=== PATIENT | male | born 1950 | race African-American/Black ===

== ENCOUNTER 2017-07-24 04:13 | Emergency (ER) | payer SELFPAY ==
[2017-07-24 05:02] VITALS: TEMP 100.9; BMI 26.5
--- NOTE | 2017-07-24 05:49 | PDOC ---
History of Present Illness - General History Source: Patient Exam Limitations: No Limitations - History of Present Illness Initial Comments: 07/24/17 06:18 The patient is a 66 y/o male who has a history of frequent panic attacks presents to the ED for evaluation of excessive coughing, subjective fevers and intermittent diaphoresis. The patient states his symptoms started about a week ago after eating a bad batch of pepper flakes with his meal at [employer]. He reportedly went home and woke up shaking with convulsions and drenched in sweat. He states he stayed home for about 5 days while only drinking water and coffee before getting back outside. He states he then developed a violent cough which produces very little sputum at the end of the coughing. He denies hemoptysis. He states he intermittently gets very shaky since the onset of his symptoms. He states his entire body is sore from the shaking and coughing. He also reportedly quit smoking cigarettes about 2 weeks ago. The patient denies chest pain, shortness of breath, headache and dizziness. The patient denies fever, chills, nausea, vomit, diarrhea and constipation. The patient denies dysuria, frequency, urgency and hematuria. PCP: Dr. Mary Cantu Hx: former smoker <Carolina Thorne - Last Filed: 07/24/17 06:18> <Tiara Srivastava - Last Filed: 07/24/17 21:18> - General Chief Complaint: Shortness of Breath Stated Complaint: DIFFICULTY BREATHING,COUGH Time Seen by Provider: 07/24/17 05:49 Past History <Carolina Thorne - Last Filed: 07/24/17 06:18> - Past Medical History Psychiatric Problems: (anxiety) - Suicide/Smoking/Psychosocial Hx Smoking History: Current every day smoker Have you smoked in the past 12 months: Yes Number of Cigarettes Smoked Daily: 10 Information on smoking cessation initiated: No Hx Alcohol Use: No Drug/Substance Use Hx: No Substance Use Type: None <Tiara Srivastava - Last Filed: 07/24/17 21:18> - Past Medical History Allergies/Adverse Reactions: Allergies Allergy/AdvReac Type Severity Reaction Status Date / Time No Known Allergies Allergy Verified 07/24/17 05:00 Home Medications: Ambulatory Orders No Home Medications 0 mg PO DAILY 09/16/13 Albuterol Sulfate Inhaler - [Ventolin HFA Inhaler -] 1 - 2 inh PO Q4H PRN #1 inhaler 07/24/17 Azithromycin [Zithromax 250mg Tablets -] 250 mg PO UTDICT #6 tab 07/24/17 Prednisone [Deltasone -] 40 mg PO DAILY #4 tablet 07/24/17 Review of Systems - Review of Systems Able to Perform ROS?: Yes Comments:: 07/24/17 06:18 CONSTITUTIONAL: (+) chills, diaphoresis, fever, Absent: generalized weakness, malaise, loss of appetite HEENT: Absent: rhinorrhea, nasal congestion, throat pain, throat swelling, difficulty swallowing, mouth swelling, ear pain, eye pain, visual Changes CARDIOVASCULAR: Absent: chest pain, syncope, palpitations, irregular heart rate, lightheadedness , peripheral edema RESPIRATORY: (+) cough, Absent: shortness of breath, dyspnea with exertion, orthopnea, wheezing, stridor, hemoptysis GASTROINTESTINAL: Absent: abdominal pain, abdominal distension, nausea, vomiting, diarrhea, constipation, melena, hematochezia GENITOURINARY: Absent: dysuria, frequency, urgency, hesitancy, hematuria, flank pain, genital pain MUSCULOSKELETAL: (+) myalgia, Absent: arthralgia, joint swelling SKIN: Absent: rash, itching, pallor HEMATOLOGIC/IMMUNOLOGIC: Absent: easy bleeding, easy bruising, lymphadenopathy, frequent infections ENDOCRINE: Absent: unexplained weight gain, unexplained weight loss, heat intolerance, cold intolerance NEUROLOGIC: Absent: headache, focal weakness or paresthesias, dizziness, unsteady gait, seizure, mental status changes, bladder or bowel incontinence PSYCHIATRIC: Absent: anxiety, depression, suicidal or homicidal ideation, hallucinations. <Carolina Thorne - Last Filed: 07/24/17 06:18> *Physical Exam - Vital Signs Last Vital Signs Temp Pulse Resp BP Pulse Ox 100.9 F H 98 H 22 115/64 93 L 07/24/17 04:20 07/24/17 04:20 07/24/17 04:20 07/24/17 04:20 07/24/17 04:20 - Physical Exam Comments: 07/24/17 06:19 GENERAL: Well developed, well nourished. Awake and alert. No acute distress. HEENT: Normocephalic, atraumatic. PERRLA, EOMI. No conjunctival pallor. Sclera are non- icteric. Moist mucous membranes. Oropharynx is clear. NECK: Supple. Full ROM. No JVD. Carotid pulses 2+ and symmetric, without bruits. No thyromegaly. No lymphadenopathy. CARDIOVASCULAR: Regular rate and rhythm. No murmurs, rubs, or gallops. Distal pulses are 2+ and symmetric. PULMONARY: (+) wheezing at bilateral lower lung bases. No evidence of respiratory distress. No rales or rhonchi. ABDOMINAL: Soft. Non-tender. Non-distended. No rebound or guarding. No organomegaly. Normoactive bowel sounds. MUSCULOSKELETAL Normal range of motion at all joints. No bony deformities or tenderness. No CVA tenderness. EXTREMITIES: No cyanosis. No clubbing. No edema. No calf tenderness. SKIN: Warm and dry. Normal capillary refill. No rashes. No jaundice. NEUROLOGICAL: Alert, awake, appropriate. Cranial nerves 2-12 intact. Normoreflexic in the upper and lower extremities. Normal speech. Toes are down-going bilaterally. Gait is normal without ataxia. PSYCHIATRIC: Cooperative. Good eye contact. Appropriate mood and affect. <Carolina Thorne - Last Filed: 07/24/17 06:18> - Vital Signs Last Vital Signs Temp Pulse Resp BP Pulse Ox 100.9 F H 98 H 22 115/64 93 L 07/24/17 04:20 07/24/17 04:20 07/24/17 04:20 07/24/17 04:20 07/24/17 04:20 <Tiara Srivastava - Last Filed: 07/24/17 21:18> Medical Decision Making - Medical Decision Making 07/24/17 21:16 Pt was signed out to the day team, to follow up his CXR. Pt came with low grade temp and with SOB and COPD exacerbation. Wheezing at the bases of his lungs improved with 1 duoneb and dexamethasone. I will not empirically treat with abx, as this may be a viral process. <Tiara Srivastava - Last Filed: 07/24/17 21:18> *DC/Admit/Observation/Transfer - Attestations Scribe Attestion: 07/24/17 06:20 Documentation prepared by Carolina Thorne, acting as medical assistant per diem for Tiara Srivastava MD <Carolina Thorne - Last Filed: 07/24/17 06:18> <Tiara Srivastava - Last Filed: 07/24/17 21:18> Diagnosis at time of Disposition: Wheezing, Tobacco abuse, Acute bronchitis - Discharge Dispostion Disposition: HOME Condition at time of disposition: Stable - Prescriptions Prescriptions: Albuterol Sulfate Inhaler - [Ventolin HFA Inhaler -] 1 - 2 inh PO Q4H PRN #1 inhaler PRN Reason: Shortness Of Breath Azithromycin [Zithromax 250mg Tablets -] 250 mg PO UTDICT #6 tab Prednisone [Deltasone -] 40 mg PO DAILY #4 tablet - Referrals Referrals: Hector Drummond MD [Staff Physician] - Esteban Burgos MD, MD [Staff Physician] - - Patient Instructions Printed Discharge Instructions: DI for Acute Bronchitis Additional Instructions: Please take all meds as prescribed. Please return to the ED with any further complaints. Please make an appointment to see the information technology account manager. Please make an appointment to see your PMD.
[2017-07-24] MEDS ORDERED: ALBUTEROL SO4 2.5/IPRATROPIUM 0.5 INH SOL 3 ML VIAL.NEB. NEB ONE ×4 (06:11→08:24)
[2017-07-24] MEDS ORDERED: DEXAMETHASONE LIQUID 0.5 MG/5 ML 240 ML BULK BOTTLE PO ONE (06:12)
[2017-07-24] MEDS ORDERED: DEXAMETHASONE SOD PHOSPHATE 10 MG/1 ML VIAL IVPUSH ONE (06:30)
[2017-07-24] MEDS ORDERED: DEXAMETHASONE SOD PHOSPHATE 10 MG/1 ML VIAL ONE (06:32)
[2017-07-24] MEDS ORDERED: ACETAMINOPHEN 325 MG TABLET (FP) PO ONE (08:04)
--- NOTE | 2017-07-24 08:07 | PDOC ---
*Physical Exam - Vital Signs Last Vital Signs Temp Pulse Resp BP Pulse Ox 100.9 F H 98 H 22 115/64 93 L 07/24/17 04:20 07/24/17 04:20 07/24/17 04:20 07/24/17 04:20 07/24/17 04:20 - Physical Exam Comments: 07/24/17 08:05 Gen: aaox3, nad heart: +s1s2 reg Lungs: wheezing at the bases b/l, coarse bs RUL abd: soft, nt/nd +bs Ext: no c/c/e ED Treatment Course - Medications Given in the ED: ED Medications Discontinued Medications Generic Name Dose Route Start Last Admin Trade Name Freq PRN Reason Stop Dose Admin Albuterol/Ipratropium 1 amp 07/24/17 06:11 07/24/17 06:46 Duoneb - NEB 07/24/17 06:12 1 amp ONCE ONE Administration Dexamethasone Sodium Phosphate 10 mg 07/24/17 06:30 07/24/17 06:46 Decadron Injection - IVPUSH 07/24/17 06:31 10 mg ONCE ONE Administration Medical Decision Making - Medical Decision Making 07/24/17 08:07 pt signed out by the prior attending pending re-eval and cxr pt with 50pack year hx of smoking, quit 2 weeks ago now with cough x 2 weeks, fever today in the ED given 1 neb and decadron prior to my eval still with wheezing pending cxr will also add flu swab given fever and cough cough is productive of yellow sputum if flu and cxr negative will d/c to home with azithromycin and albuterol for mucopurulent bronchitis will give steroids will need pulmonary follow up 07/24/17 09:35 flu negative cxr negative *DC/Admit/Observation/Transfer Diagnosis at time of Disposition: Wheezing, Tobacco abuse, Acute bronchitis - Discharge Dispostion Disposition: HOME Condition at time of disposition: Stable Admit: No - Prescriptions Prescriptions: Albuterol Sulfate Inhaler - [Ventolin HFA Inhaler -] 1 - 2 inh PO Q4H PRN #1 inhaler PRN Reason: Shortness Of Breath Azithromycin [Zithromax 250mg Tablets -] 250 mg PO UTDICT #6 tab Prednisone [Deltasone -] 40 mg PO DAILY #4 tablet - Referrals Referrals: BurgosEsteban MD, MD [Staff Physician] - Hector Drummond MD [Staff Physician] - - Patient Instructions Printed Discharge Instructions: DI for Acute Bronchitis Additional Instructions: Please take all meds as prescribed. Please return to the ED with any further complaints. Please make an appointment to see the sba underwriter. Please make an appointment to see your PMD. - Post Discharge Activity
[2017-07-24] MEDS ORDERED: ACETAMINOPHEN 325 MG TABLET (FP) ONE (08:24)
[2017-07-24 08:30] VITALS: BP 155/77
[2017-07-24 08:34] VITALS: PULSE 89
[2017-07-24] MEDS ORDERED: AZITHROMYCIN 250 MG TABLET PO ONE (09:35)
[2017-07-24] MEDS ORDERED: AZITHROMYCIN 500 MG TABLET ONE (09:41)
== END 2017-07-24 10:32 | disposition home or self-care (01) ==
LOC: JER 04:13
PROC: 3E0F7GC Introduction of Other Therapeutic Substance into Respiratory Tract, Via Natural or Artificial Opening (ICD-10-PCS; principal; 2017-07-24)
PROC: 3E0F7GC Introduction of Other Therapeutic Substance into Respiratory Tract, Via Natural or Artificial Opening (ICD-10-PCS; 2017-07-24)
PROC: 3E0333Z Introduction of Anti-inflammatory into Peripheral Vein, Percutaneous Approach (ICD-10-PCS; 2017-07-24)
DX: J20.9 Acute bronchitis, unspecified (principal); F41.0 Panic disorder [episodic paroxysmal anxiety]; F17.210 Nicotine dependence, cigarettes, uncomplicated
CPT/HCPCS: 71046-TC-FY; 87804; 99283-25; J1100

== ENCOUNTER 2017-09-29 15:05 | Emergency (ER) | payer OTHER, MEDICARE ==
--- NOTE | 2017-09-29 15:24 | PDOC ---
Rapid Medical Evaluation Time Seen by Provider: 09/29/17 15:22 Medical Evaluation: Allergies Allergy/AdvReac Type Severity Reaction Status Date / Time No Known Allergies Allergy Verified 07/24/17 05:00 09/29/17 15:22 I have performed a brief in-person evaluation of this patient. The patient presents with a chief complaint of: "something in my ears" Pertinent physical exam findings: well appearing I have ordered the following: nothing The patient will proceed to the ED for further evaluation. Discharge Disposition - Diagnosis Ear problem - Referrals - Patient Instructions - Post Discharge Activity
[2017-09-29 15:34] VITALS: BP 148/82; PULSE 82; TEMP 98.9; BMI 25.0
--- NOTE | 2017-09-29 16:19 | PDOC ---
History of Present Illness - General Chief Complaint: Ear Problem Stated Complaint: FOREIGN OBJECT IN EAR Time Seen by Provider: 09/29/17 15:22 History Source: Patient Exam Limitations: No Limitations - History of Present Illness Initial Comments: 09/29/17 16:12 This is 67-year-old male with a history of IVDA, panic attacks who presents emergency Department with retained foreign body in his right and left ear status post nserting cotton swab. Patient states he was cleaning his ears with a cotton swab when he noticed the cotton was missing off the tip of the swab after placing in ears. Patient sent down for evaluation, he began to experience a fluttering feeling in his epigastric area consistent with his usual panic attacks. Patient states the fluttering feeling resolved spontaneously within a few seconds of onset. He denied chest pain, shortness of breath, nausea, vomiting, dizziness. Past History - Past Medical History Allergies/Adverse Reactions: Allergies Allergy/AdvReac Type Severity Reaction Status Date / Time No Known Allergies Allergy Verified 09/29/17 15:24 Home Medications: Ambulatory Orders No Home Medications 0 mg PO DAILY 09/16/13 COPD: No DVT: No Dementia: No Psychiatric Problems: (anxiety) - Immunization History Immunization Up to Date: Yes - Suicide/Smoking/Psychosocial Hx Smoking History: Former smoker Have you smoked in the past 12 months: Yes Number of Cigarettes Smoked Daily: 10 If you are a former smoker, when did you quit?: 3 months Information on smoking cessation initiated: No Hx Alcohol Use: No Drug/Substance Use Hx: No Substance Use Type: None Review of Systems - Review of Systems Able to Perform ROS?: Yes Is the patient limited Welsh proficient: No Constitutional: No: Symptoms Reported HEENTM: Yes: See HPI Respiratory: No: Symptoms reported Cardiac (ROS): Yes: See HPI ABD/GI: No: Symptoms Reported : No: Symptoms Reported Musculoskeletal: No: Symptoms Reported Integumentary: No: Symptoms Reported Neurological: No: Symptoms reported Endocrine: No: Symptoms Reported Hematologic/Lymphatic: No: Symptoms Reported *Physical Exam - Vital Signs Last Vital Signs Temp Pulse Resp BP Pulse Ox 98.9 F 82 15 148/82 100 09/29/17 15:25 09/29/17 15:25 09/29/17 15:25 09/29/17 15:25 09/29/17 15:25 - Physical Exam General Appearance: Yes: Appropriately Dressed. No: Apparent Distress HEENT: positive: Pharynx Normal, Other (impacted cerumen noted in bilateral external auditory canals) Neck: positive: Trachea midline, Supple Respiratory/Chest: positive: Lungs Clear, Normal Breath Sounds. negative: Respiratory Distress, Accessory Muscle Use Cardiovascular: positive: Regular Rhythm, Regular Rate. negative: Murmur Gastrointestinal/Abdominal: positive: Normal Bowel Sounds, Soft. negative: Tender Musculoskeletal: positive: Normal Inspection. negative: CVA Tenderness Extremity: positive: Normal Inspection Integumentary: positive: Normal Color, Dry, Warm Neurologic: positive: Alert, Normal Response, Motor Strength 5/5 Heart Score/ECG Review - History History: Slightly suspicious - Electrocardiogram EKG: Normal - Age Age: >/= 65 - Risk Factors Based on the list above the patient has:: No risk factors known - Troponin Troponin: </= normal limit - Score Heart Score - Total: 2 - ECG Intrepretation Rhythm: Regular Rhythm - Babb Babb: Normal - ECG Impressions Normal ECG: Yes ED Treatment Course - LABORATORY CBC & Chemistry Diagram: 09/29/17 16:30 09/29/17 16:15 Medical Decision Making - Medical Decision Making 09/29/17 16:17 A/P: 67-year-old male with epigastric fluttering and decreased hearing in bilateral ears Impacted cerumen noted in bilateral external auditory canals. Lungs clear to auscultation bilaterally. RRR. No murmur, rub or gallop appreciated. No pedal edema noted. No JVD noted. Abdomen soft nontender nondistended Hydrogen peroxide in bilateral external auditory canals to remove impacted cerumen CBC, CMP, cardiac profile, TSH, EKG EKG is sinus rhythm with a rate of 77 and normal intervals. 09/29/17 16:57 Laboratory testing including TSH and cardiac profile within normal. Most likely the patient's anxiety. I'll discharge the patient to follow up with his psychiatrist and his primary doctor. Ear irrigation performed. Piece of cotton noted behind impacted cerumen which was removed with alligator forceps without incident. Patient tolerated procedure well. *DC/Admit/Observation/Transfer Diagnosis at time of Disposition: Anxiety, Impacted cerumen of both ears Foreign body in ear Qualifiers: Encounter type: initial encounter Laterality: left Qualified Code(s): T16.2XXA - Foreign body in left ear, initial encounter - Discharge Dispostion Disposition: HOME Condition at time of disposition: Stable Admit: No - Referrals Referrals: Adrienne Hernandez [Primary Care Provider] - - Patient Instructions Additional Instructions: Make an appointment with your primary doctor and/or psychiatrist for continued evaluation of anxiety. Laboratory testing including thyroid function was normal. Do not insert anything smaller than your elbow into your ear. Return to emergency department for chest pain, shortness of breath, nausea, vomiting, sweating or any other concerns. - Post Discharge Activity
[2017-09-29 16:34] LABS: BASO % 0.9 % (0-2.0); EOS % 1.7 % (0-4.5); HEMATOCRIT 37.8 % (35.4-49); HEMOGLOBIN 13.4 GM/dL (11.7-16.9); MCH 33.1 pg (25.7-33.7); MCHC 35.4 g/dl (32.0-35.9); MEAN CELL VOLUME 93.5 fl (80-96); MEAN PLT VOLUME 6.9 fl (7.5-11.1); MONO % 8.9 % (3.8-10.2); NEUT % 40.5 % (42.8-82.8); PLATELET COUNT 231 K/MM3 (134-434); RBC 4.04 M/mm3 (4.00-5.60)
[2017-09-29 16:45] LABS: ALBUMIN 3.9 g/dl (3.4-5.0); ANION GAP 9 (8-16); BILIRUBIN,TOTAL 0.7 mg/dL (0.2-1.0); BLOOD UREA NITROGEN 13 mg/dL (7-18); CALCIUM 8.5 mg/dL (8.5-10.1); CHLORIDE 112 mmol/L (98-107); CO2 23 mmol/L (21-32); GLUCOSE,RANDOM 124 mg/dL (74-106); POTASSIUM 3.8 mmol/L (3.5-5.1); SGOT/AST 41 U/L (15-37); SGPT/ALT 38 U/L (12-78); SODIUM 144 mmol/L (136-145); TOT PROT 7.8 g/dl (6.4-8.2)
[2017-09-29 16:48] LABS: ALK PHOS 80 U/L (45-117)
--- NOTE | 2017-09-30 09:27 | EKG ---
Test Reason : Blood Pressure : / mmHG Vent. Rate : 077 BPM Atrial Rate : 077 BPM P-R Int : 160 ms QRS Dur : 092 ms QT Int : 344 ms P-R-T Axes : 046 056 034 degrees QTc Int : 389 ms NORMAL SINUS RHYTHM NORMAL ECG WHEN COMPARED WITH ECG OF 16-SEP-2013 00:14, QT HAS SHORTENED Confirmed by GURJIT DODD MD ([id number]) on 09/30/2017 9:27:02 AM Referred By: MR Confirmed By:GURJIT DODD MD
== END 2017-09-29 17:10 | disposition home or self-care (01) ==
LOC: JERFT 15:05
PROC: 3E1B78Z Irrigation of Ear using Irrigating Substance, Via Natural or Artificial Opening (ICD-10-PCS; principal; 2017-09-29)
PROC: 3E1B78Z Irrigation of Ear using Irrigating Substance, Via Natural or Artificial Opening (ICD-10-PCS; 2017-09-29)
PROC: 09C37ZZ Extirpation of Matter from Right External Auditory Canal, Via Natural or Artificial Opening (ICD-10-PCS; 2017-09-29)
DX: T16.1XXA Foreign body in right ear, initial encounter (principal); H61.23 Impacted cerumen, bilateral; T16.2XXA Foreign body in left ear, initial encounter; Y93.E8 Activity, other personal hygiene; Y93.89 Activity, other specified; Y92.038 Other place in apartment as the place of occurrence of the external cause
CPT/HCPCS: 36415; 80053; 82550; 84443; 84484; 85025; 93005; 93010; 99281-25

== ENCOUNTER 2021-01-26 23:58 | Emergency (ER) | payer OTHER, MEDICARE ==
[2021-01-27 01:04] VITALS: BP 163/85; PULSE 76; TEMP 98.2; BMI 24.0
== END 2021-01-27 04:34 | disposition left against medical advice (07) ==
LOC: JER 23:58
DX: M54.6 Pain in thoracic spine (principal)
CPT/HCPCS: 99283-25; 99285-25

== ENCOUNTER 2021-03-21 13:52 | Emergency (ER) | payer OTHER, MEDICARE ==
[2021-03-21 14:01] VITALS: BP 170/82; PULSE 92; TEMP 98.1; BMI 23.1
== END 2021-03-21 15:00 | disposition left against medical advice (07) ==
LOC: JERFT 13:52
DX: M71.311 Other bursal cyst, right shoulder (principal)
CPT/HCPCS: 99281-25

== ENCOUNTER 2021-04-18 13:05 | Inpatient (IN) | payer OTHER, MEDICARE ==
[2021-04-18] MEDS ORDERED: LACTATED RINGERS SOLUTION 1000 ML INFUS.BAG IV ONE (15:31)
[2021-04-18 16:42] LABS: BASO % 1.2 % (0-2.0); EOS % 0.7 % (0-4.5); HEMATOCRIT 39.5 % (35.4-49); HEMOGLOBIN 13.5 GM/dL (11.7-16.9); LYMPH % 26.1 % (8-40); MCH 29.8 pg (25.7-33.7); MCHC 34.1 g/dl (32.0-35.9); MEAN CELL VOLUME 87.4 fl (80-96); MONO % 6.4 % (3.8-10.2); NEUT % 65.6 % (42.8-82.8); PLATELET COUNT 299 10^3/uL (134-434); RBC 4.52 M/mm3 (4.00-5.60); RDW 17.7 % (11.9-15.9); WHITE BLOOD COUNT 6.2 K/mm3 (4.0-10.0)
[2021-04-18 16:46] LABS: INR 1.05 (0.83-1.09); PROTHROMBIN TIME (PATIENT) 12.3 SEC (9.7-13.0)
[2021-04-18 17:02] LABS: URINE APPEARANCE TURBID; URINE BILIRUBIN 3+ (NEGATIVE); URINE COLOR DK YELLOW; URINE GLUCOSE (UA) NEGATIVE (NEGATIVE); URINE KETONE NEGATIVE (NEGATIVE); URINE LEUK ESTERASE 1+ (NEGATIVE); URINE NITRITE POSITIVE (NEGATIVE); URINE PROTEIN 2+ (NEGATIVE); URINE UROBILINOGEN 0.2 mg/dL (0.2-1.0)
[2021-04-18 17:05] LABS: CHLORIDE 107 mmol/L (98-107); SODIUM 143 mmol/L (136-145)
[2021-04-18 17:07] LABS: CALCIUM 9.2 mg/dL (8.5-10.1)
[2021-04-18 17:08] LABS: ALBUMIN 2.8 g/dl (3.4-5.0); ANION GAP 10 MMOL/L (8-16); CO2 26 mmol/L (21-32); GLUCOSE,RANDOM 115 mg/dL (74-106); LIPASE 121 U/L (73-393)
[2021-04-18 17:10] LABS: BILIRUBIN,DIRECT 11.9 mg/dL (0.0-0.2)
[2021-04-18 17:11] LABS: CREATININE 0.9 mg/dL (0.55-1.3); SGOT/AST 76 U/L (15-37); SGPT/ALT 59 U/L (13-61)
[2021-04-18 17:12] LABS: TOT PROT 7.3 g/dl (6.4-8.2)
[2021-04-18 17:14] LABS: ALK PHOS 389 U/L (45-117)
[2021-04-18 17:31] LABS: LDH 149 U/L (87-246)
[2021-04-18 17:31] LABS: COCAINE, UR NEGATIVE (NEGATIVE); METHADONE, UR NEGATIVE (NEGATIVE); OPIATES, URI NEGATIVE (NEGATIVE); PHENCYCLIDINE,URINE NEGATIVE (NEGATIVE); URINE BARBITURATES NEGATIVE (NEGATIVE); URINE BENZODIAZEPINES NEGATIVE (NEGATIVE)
[2021-04-18 17:51] LABS: URINE AMPHETAMINES NEGATIVE (NEGATIVE)
[2021-04-18 18:14] LABS: HIV INTERPRETATION NEGATIVE (NEGATIVE)
[2021-04-18 20:14] LABS: EPI CELLS 0.6 /uL (0-25.1); HYALINE CASTS 0.12 /uL (0-3.1); URINE BACTERIA 33.3 /uL (0-1359); URINE CRYSTALS MODERATE /hpf; URINE RBC 59.2 /uL (0-23.9); URINE WBC 2.5 /uL (0-25.8)
[2021-04-18] MEDS ORDERED: IBUPROFEN 400 MG TABLET (FP) PO PRN (21:56)
[2021-04-18] MEDS ORDERED: POLYETHYLENE GLYCOL (HEALTHYLAX) 3350 17 GM PACKET PO PRN (22:19)
[2021-04-18 23:22] VITALS: BMI 22.2
[2021-04-19] MEDS ORDERED: MELATONIN 5 MG TABLETS PO ONE (01:01)
[2021-04-19] MEDS: ENOXAPARIN NA (PORCINE) 40 MG/0.4 ML DISP.SYRIN SQ SCH (09:55)
[2021-04-19] MEDS: LACTULOSE 20 GM/30 ML UDC (FOR ORAL USE ONLY) PO SCH (10:12)
[2021-04-19 10:25] LABS: BASO % 1.4 % (0-2.0); EOS % 1.6 % (0-4.5); HEMATOCRIT 39.4 % (35.4-49); HEMOGLOBIN 13.4 GM/dL (11.7-16.9); LYMPH % 34.5 % (8-40); MCH 30.2 pg (25.7-33.7); MCHC 33.9 g/dl (32.0-35.9); MEAN CELL VOLUME 89.1 fl (80-96); MEAN PLT VOLUME 9.6 fl (7.5-11.1); MONO % 9.6 % (3.8-10.2); NEUT % 52.9 % (42.8-82.8); PLATELET COUNT 275 10^3/uL (134-434); RBC 4.42 M/mm3 (4.00-5.60); RDW 18.1 % (11.9-15.9); WHITE BLOOD COUNT 5.9 K/mm3 (4.0-10.0)
[2021-04-19 10:52] LABS: CALCIUM 9.2 mg/dL (8.5-10.1)
[2021-04-19 10:53] LABS: ALBUMIN 2.7 g/dl (3.4-5.0); BLOOD UREA NITROGEN 11.7 mg/dL (7-18); MAGNESIUM 2.2 mg/dL (1.8-2.4)
[2021-04-19 10:56] LABS: CREATININE 0.9 mg/dL (0.55-1.3)
[2021-04-19 10:57] LABS: BILIRUBIN,TOTAL 14.3 mg/dL (0.2-1); TOT PROT 7.1 g/dl (6.4-8.2)
[2021-04-19] MEDS ORDERED: ALBUTEROL SO4 HFA INHALER IH PRN (15:21)
[2021-04-20] MEDS ORDERED: MELATONIN 5 MG TABLETS PO ONE (01:12)
[2021-04-20 08:34] LABS: BASO % 1.1 % (0-2.0); EOS % 1.5 % (0-4.5); HEMATOCRIT 39.2 % (35.4-49); HEMOGLOBIN 13.3 GM/dL (11.7-16.9); LYMPH % 33.2 % (8-40); MCH 30.1 pg (25.7-33.7); MCHC 33.8 g/dl (32.0-35.9); MEAN CELL VOLUME 88.9 fl (80-96); MEAN PLT VOLUME 9.3 fl (7.5-11.1); MONO % 10.5 % (3.8-10.2); NEUT % 53.7 % (42.8-82.8); PLATELET COUNT 260 10^3/uL (134-434); RBC 4.41 M/mm3 (4.00-5.60); RDW 17.9 % (11.9-15.9); WHITE BLOOD COUNT 5.7 K/mm3 (4.0-10.0)
[2021-04-20 09:05] LABS: ALBUMIN 2.4 g/dl (3.4-5.0); BLOOD UREA NITROGEN 9.4 mg/dL (7-18); CALCIUM 9.1 mg/dL (8.5-10.1)
[2021-04-20 09:08] LABS: BILIRUBIN,DIRECT 11.9 mg/dL (0.0-0.2); CREATININE 0.9 mg/dL (0.55-1.3)
[2021-04-20 09:10] LABS: BILIRUBIN,TOTAL 14.2 mg/dL (0.2-1); TOT PROT 6.6 g/dl (6.4-8.2)
[2021-04-20 09:19] LABS: MAGNESIUM 2.2 mg/dL (1.8-2.4)
[2021-04-20] MEDS ORDERED: LORazepam 2 MG/ML SDV VIAL IVPUSH SCH (09:29)
[2021-04-20] MEDS: LACTULOSE 20 GM/30 ML UDC (FOR ORAL USE ONLY) PO SCH (10:02)
[2021-04-20] MEDS: ENOXAPARIN NA (PORCINE) 40 MG/0.4 ML DISP.SYRIN SQ SCH (10:02)
[2021-04-20] MEDS ORDERED: PANTOPRAZOLE 40 MG TABLET PO ONE (13:15)
[2021-04-20] MEDS: MELATONIN 5 MG TABLETS PO SCH (23:10)
[2021-04-21 07:32] LABS: BASO % 1.4 % (0-2.0); EOS % 2.1 % (0-4.5); HEMATOCRIT 38.7 % (35.4-49); HEMOGLOBIN 13.5 GM/dL (11.7-16.9); LYMPH % 35.6 % (8-40); MCH 30.6 pg (25.7-33.7); MCHC 34.9 g/dl (32.0-35.9); MEAN CELL VOLUME 87.7 fl (80-96); MEAN PLT VOLUME 9.3 fl (7.5-11.1); MONO % 9.7 % (3.8-10.2); NEUT % 51.2 % (42.8-82.8); PLATELET COUNT 276 10^3/uL (134-434); RBC 4.41 M/mm3 (4.00-5.60); RDW 17.8 % (11.9-15.9); WHITE BLOOD COUNT 5.3 K/mm3 (4.0-10.0)
[2021-04-21 07:58] LABS: ALBUMIN 2.5 g/dl (3.4-5.0); CALCIUM 8.9 mg/dL (8.5-10.1)
[2021-04-21 07:59] LABS: BLOOD UREA NITROGEN 10.5 mg/dL (7-18)
[2021-04-21 08:03] LABS: BILIRUBIN,TOTAL 14.8 mg/dL (0.2-1); TOT PROT 6.8 g/dl (6.4-8.2)
[2021-04-21] MEDS ORDERED: POTASSIUM CHLORIDE TABS 20 MEQ TABLET.ER (FP) PO ONE (08:15)
[2021-04-21] MEDS: LACTULOSE 20 GM/30 ML UDC (FOR ORAL USE ONLY) PO SCH (09:33)
[2021-04-21] MEDS: ENOXAPARIN NA (PORCINE) 40 MG/0.4 ML DISP.SYRIN SQ SCH (09:34)
[2021-04-21] MEDS ORDERED: FAMOTIDINE 20 MG TABLET PO ONE (19:49)
[2021-04-21] MEDS: MELATONIN 5 MG TABLETS PO SCH (22:51)
[2021-04-22 01:06] LABS: FIBROSIS SCORE. 0.99 (0.00-0.21); HCV ALPHA 2 MACRO CHART 278 mg/dL (110-276); NECRO.INFLAM ACT.SCORE 0.57 (0.00-0.17); NECROINFLAM. ACTIVITY GRADE A2-Moderate activity (.)
[2021-04-22 04:44] VITALS: BP 143/73; PULSE 74; TEMP 98.3
[2021-04-22 07:07] LABS: CARCINOEMBRYONIC ANTIGEN 3.8 ng/mL (0.0-4.7)
[2021-04-23 17:06] LABS: HCV RNA GENOTYPE 1a (.)
== END 2021-04-22 05:11 | disposition short-term general hospital (02) | DRG 436 ==
LOC: JER 13:05 → JERBED 19:29 → J7W 22:56
DX: C78.7 Secondary malignant neoplasm of liver and intrahepatic bile duct (principal); R17 Unspecified jaundice; B19.20 Unspecified viral hepatitis C without hepatic coma; R74.8 Abnormal levels of other serum enzymes; N40.0 Benign prostatic hyperplasia without lower urinary tract symptoms; J44.9 Chronic obstructive pulmonary disease, unspecified
CPT/HCPCS: 36415; 71045-TC-FY; 71046-TC-FY; 71250-TC; 74177-TC; 80053; 80076; 80307; 81003; 82105; 82140; 82172; 82248; 82378; 82977; 83010; 83615; 83690; 83735; 83883; 84460; 85025; 85045; 85610; 85730; 86301; 86704; 86705; 86708; 86769; 86803; 87340; 87389; 87517; 87522; 87902; 93005; 93010; 99285-25; C9803; Q9967; U0003; U0005

== ENCOUNTER 2022-02-07 20:32 | Inpatient (IN) | payer OTHER, MEDICARE ==
[2022-02-07] MEDS ORDERED: methylPREDNISolone NA SUCC 125 MG/2 ML VIAL IVPUSH ONE (21:09)
[2022-02-07] MEDS ORDERED: methylPREDNISolone NA SUCC 125 MG/2 ML VIAL ONE (21:14)
[2022-02-07] MEDS ORDERED: ALBUTEROL SO4 2.5/IPRATROPIUM 0.5 INH SOL 3 ML VIAL.NEB. NEB ONE ×2 (21:14→23:11)
[2022-02-07] MEDS: ALBUTEROL SO4 2.5/IPRATROPIUM 0.5 INH SOL 3 ML VIAL.NEB. NEB SCH (21:22)
[2022-02-07 21:46] LABS: VENOUS BASE EXCESS 1.2 mmol/L (-2-2); VENOUS O2 SATURATION 84.1 % (70-80); VENOUS PCO2 51.4 mmHg (38-52); VENOUS PH 7.348 (7.310-7.410)
[2022-02-07 22:09] LABS: BASO % 0.4 % (0-2.0); EOS % 0.8 % (0-4.5); HEMATOCRIT 37.4 % (35.4-49); HEMOGLOBIN 12.5 GM/dL (11.7-16.9); LYMPH % 33.5 % (8-40); MCH 30.5 pg (25.7-33.7); MCHC 33.3 g/dl (32.0-35.9); MEAN CELL VOLUME 91.3 fl (80-96); MEAN PLT VOLUME 8.1 fl (7.5-11.1); MONO % 8.3 % (3.8-10.2); PLATELET COUNT 224 10^3/uL (134-434); WHITE BLOOD COUNT 6.1 K/mm3 (4.0-10.0)
[2022-02-07 22:21] LABS: CHLORIDE 104 mmol/L (98-107); SODIUM 140 mmol/L (136-145)
[2022-02-07 22:23] LABS: ALBUMIN 3.6 g/dl (3.4-5.0); ANION GAP 8 MMOL/L (8-16); BLOOD UREA NITROGEN 10.9 mg/dL (7-18); CALCIUM 8.9 mg/dL (8.5-10.1); CO2 28 mmol/L (21-32); GLUCOSE,RANDOM 107 mg/dL (74-106)
[2022-02-07 22:24] LABS: MAGNESIUM 1.9 mg/dL (1.8-2.4)
[2022-02-07 22:26] LABS: CREATININE 0.8 mg/dL (0.55-1.3); SGOT/AST 47 U/L (15-37); SGPT/ALT 37 U/L (13-61)
[2022-02-07 22:28] LABS: BILIRUBIN,TOTAL 0.5 mg/dL (0.2-1); TOT PROT 7.7 g/dl (6.4-8.2)
[2022-02-07 22:29] LABS: ALK PHOS 109 U/L (45-117)
[2022-02-07] MEDS ORDERED: CEFTRIAXONE 1,000 MG in DEXTROSE 5%-WATER - 50 ML IVPB ONE (22:44)
[2022-02-07] MEDS ORDERED: ASPIRIN 81 MG CHEWABLE TABLETS PO ONE (23:06)
[2022-02-07] MEDS ORDERED: CEFTRIAXONE 1 GM/50 ML BAG ONE (23:11)
[2022-02-07] MEDS ORDERED: ADENOSINE 6 MG/2 ML VIAL IVPUSH ONE (23:37)
[2022-02-07] MEDS ORDERED: dilTIAZem HCL 125 MG/25 ML - 25 ML VIAL ONE (23:52)
[2022-02-08] MEDS ORDERED: ADENOSINE 6 MG/2 ML VIAL IVPUSH ONE ×2 (00:02→00:03)
[2022-02-08] MEDS ORDERED: dilTIAZem HCL 50 MG/10 ML - 10 ML VIAL IVPUSH ONE ×2 (00:02→00:18)
[2022-02-08] MEDS ORDERED: dilTIAZem HCL 30 MG TABLET PO ONE (00:12)
[2022-02-08] MEDS ORDERED: dilTIAZem HCL 30 MG TABLET ONE ×2 (00:14→00:28)
[2022-02-08] MEDS ORDERED: dilTIAZem HCL 125 MG/25 ML - 25 ML VIAL ONE (00:23)
[2022-02-08] MEDS ORDERED: dilTIAZem HCL 50 MG/10 ML - 10 ML VIAL ONE (00:23)
[2022-02-08] MEDS ORDERED: APIXABAN 5 MG TABLET PO ONE (00:51)
[2022-02-08] MEDS: ALBUTEROL SO4 2.5/IPRATROPIUM 0.5 INH SOL 3 ML VIAL.NEB. NEB SCH ×3 (00:53→02:47)
[2022-02-08] MEDS ORDERED: APIXABAN 5 MG TABLET ONE (00:58)
[2022-02-08] MEDS ORDERED: ASPIRIN 81 MG CHEWABLE TABLETS ONE (00:59)
[2022-02-08 05:48] LABS: CHOLESTEROL 182 mg/dL (50-200); TRIGLYCERIDES 100 mg/dL (0-150)
[2022-02-08 05:49] LABS: LDL CHOLESTEROL (ONLY SJRH) 108 mg/dL (5-100)
[2022-02-08 05:51] LABS: HDL CHOLESTEROL 64 mg/dL (40-60)
[2022-02-08 05:52] LABS: N-TERMINAL BNP 1796.2 pg/ml (5-125)
[2022-02-08 08:01] LABS: BASO % 0.1 % (0-2.0); HEMATOCRIT 36.9 % (35.4-49); HEMOGLOBIN 12.2 GM/dL (11.7-16.9); LYMPH % 8.4 % (8-40); MCH 30.6 pg (25.7-33.7); MCHC 33.1 g/dl (32.0-35.9); MEAN CELL VOLUME 92.4 fl (80-96); MEAN PLT VOLUME 8.2 fl (7.5-11.1); MONO % 2.3 % (3.8-10.2); NEUT % 89.2 % (42.8-82.8); PLATELET COUNT 226 10^3/uL (134-434); RDW 16.6 % (11.9-15.9); WHITE BLOOD COUNT 3.6 K/mm3 (4.0-10.0)
[2022-02-08 08:05] LABS: CALCIUM 8.6 mg/dL (8.5-10.1)
[2022-02-08 08:06] LABS: ALBUMIN 3.1 g/dl (3.4-5.0); BLOOD UREA NITROGEN 12.9 mg/dL (7-18); MAGNESIUM 1.9 mg/dL (1.8-2.4)
[2022-02-08 08:09] LABS: CREATININE 0.9 mg/dL (0.55-1.3); PHOSPHOROUS 2.5 mg/dL (2.5-4.9)
[2022-02-08 08:10] LABS: BILIRUBIN,TOTAL 0.6 mg/dL (0.2-1)
[2022-02-08 08:13] LABS: BILIRUBIN,DIRECT 0.1 mg/dL (0.0-0.2)
[2022-02-08] MEDS: IPRATROPIUM BR 0.02% 0.5 MG/2.5 ML VIAL.NEB. NEB SCH ×3 (08:35→15:22)
[2022-02-08] MEDS ORDERED: REMDESIVIR 200 MG in SODIUM CHLORIDE 250 ML IVPB ONE (09:00)
[2022-02-08] MEDS ORDERED: DEXAMETHASONE SOD PHOSPHATE 10 MG/1 ML VIAL IVPUSH ONE (09:00)
[2022-02-08] MEDS ORDERED: PNEUMOC 20-VAL CONJ-DIP CRM/PF 0.5 ML SYRINGE IM ONE (10:00)
[2022-02-08] MEDS ORDERED: METOPROLOL TARTRATE 25 MG TABLET (FP) PO SCH (10:00)
[2022-02-08] MEDS ORDERED: APIXABAN 5 MG TABLET PO SCH (10:15)
[2022-02-08] MEDS: dilTIAZem HCL 30 MG TABLET PO SCH ×3 (11:36→18:05)
[2022-02-08] MEDS ORDERED: SIMETHICONE 80 MG TAB.CHEW (FP) PO PRN (13:01)
[2022-02-08] MEDS ORDERED: IPRATROPIUM BR 0.02% 0.5 MG/2.5 ML VIAL.NEB. NEB SCH (20:00)
[2022-02-08] MEDS: APIXABAN 5 MG TABLET PO SCH (21:42)
[2022-02-08] MEDS ORDERED: ALBUTEROL SO4 HFA INHALER IH ONE (21:58)
[2022-02-08] MEDS ORDERED: guaiFENesin 200 MG/10 ML 10 ML UNIT-DOSE CUPS PO ONE (21:59)
[2022-02-08] MEDS ORDERED: CHLORHEXIDINE GLUCONATE 4% CLEANSER FOR DECOLONIZATION TP SCH (22:00)
[2022-02-08] MEDS ORDERED: MUPIROCIN 2% TOPICAL OINTMENT FOR DECOLONIZATION NS SCH (22:00)
[2022-02-08] MEDS: BENZOCAINE/MENTH/CETYLPYRD CL 1 EACH LOZENGE MM PRN (22:44)
[2022-02-08] MEDS ORDERED: MELATONIN 5 MG TABLETS PO ONE (22:57)
[2022-02-09] MEDS: dilTIAZem HCL 30 MG TABLET PO SCH ×4 (00:14→18:10)
[2022-02-09] MEDS: BENZOCAINE/MENTH/CETYLPYRD CL 1 EACH LOZENGE MM PRN ×3 (06:25→22:00)
[2022-02-09 07:49] LABS: BASO % 0.2 % (0-2.0); HEMATOCRIT 34.6 % (35.4-49); HEMOGLOBIN 11.4 GM/dL (11.7-16.9); LYMPH % 6.4 % (8-40); MCH 30.8 pg (25.7-33.7); MCHC 32.8 g/dl (32.0-35.9); MEAN CELL VOLUME 93.7 fl (80-96); MEAN PLT VOLUME 7.9 fl (7.5-11.1); MONO % 6.9 % (3.8-10.2); NEUT % 86.5 % (42.8-82.8); PLATELET COUNT 235 10^3/uL (134-434); RBC 3.69 M/mm3 (4.00-5.60); RDW 16.7 % (11.9-15.9); WHITE BLOOD COUNT 6.7 K/mm3 (4.0-10.0)
[2022-02-09 08:32] LABS: BILIRUBIN,TOTAL 0.3 mg/dL (0.2-1); BLOOD UREA NITROGEN 29.6 mg/dL (7-18); CALCIUM 8.9 mg/dL (8.5-10.1); CREATININE 0.9 mg/dL (0.55-1.3); MAGNESIUM 2.1 mg/dL (1.8-2.4); PHOSPHOROUS 3.8 mg/dL (2.5-4.9); TOT PROT 6.8 g/dl (6.4-8.2)
[2022-02-09] MEDS ORDERED: IPRATROPIUM BR 0.02% 0.5 MG/2.5 ML VIAL.NEB. NEB SCH (10:00)
[2022-02-09] MEDS: DEXAMETHASONE SOD PHOSPHATE 10 MG/1 ML VIAL IVPUSH SCH (10:54)
[2022-02-09] MEDS: APIXABAN 5 MG TABLET PO SCH ×2 (10:54→21:00)
[2022-02-09] MEDS: REMDESIVIR 100 MG in SODIUM CHLORIDE 250 ML IVPB SCH (10:54)
[2022-02-09] MEDS ORDERED: ACETAMINOPHEN 325 MG TABLET (FP) PO PRN (15:36)
[2022-02-09 15:51] VITALS: BMI 19.0
[2022-02-09] MEDS ORDERED: MELATONIN 5 MG TABLETS PO ONE (20:04)
[2022-02-09] MEDS: guaiFENesin/CODEINE 5 ML UNIT-DOSE CUPS PO PRN (20:49)
[2022-02-09] MEDS: MELATONIN 1 MG TABLET PO SCH (21:00)
[2022-02-09] MEDS: ALBUTEROL SO4 HFA INHALER IH PRN (21:00)
[2022-02-10] MEDS: dilTIAZem HCL 30 MG TABLET PO SCH ×4 (00:26→17:29)
[2022-02-10] MEDS: guaiFENesin/CODEINE 5 ML UNIT-DOSE CUPS PO PRN (06:06)
[2022-02-10] MEDS: BENZOCAINE/MENTH/CETYLPYRD CL 1 EACH LOZENGE MM PRN (06:07)
[2022-02-10 08:31] LABS: BASO % 0.3 % (0-2.0); HEMATOCRIT 34.4 % (35.4-49); HEMOGLOBIN 11.3 GM/dL (11.7-16.9); LYMPH % 5.3 % (8-40); MCH 30.6 pg (25.7-33.7); MCHC 32.8 g/dl (32.0-35.9); MEAN CELL VOLUME 93.4 fl (80-96); MEAN PLT VOLUME 8.2 fl (7.5-11.1); MONO % 4.4 % (3.8-10.2); PLATELET COUNT 246 10^3/uL (134-434); RBC 3.69 M/mm3 (4.00-5.60); WHITE BLOOD COUNT 7.1 K/mm3 (4.0-10.0)
[2022-02-10 08:55] LABS: CALCIUM 8.8 mg/dL (8.5-10.1)
[2022-02-10 08:56] LABS: BLOOD UREA NITROGEN 27.7 mg/dL (7-18); MAGNESIUM 2.1 mg/dL (1.8-2.4)
[2022-02-10 08:57] LABS: ALBUMIN 3.2 g/dl (3.4-5.0)
[2022-02-10 08:59] LABS: CREATININE 0.8 mg/dL (0.55-1.3)
[2022-02-10 09:01] LABS: BILIRUBIN,TOTAL 0.4 mg/dL (0.2-1); TOT PROT 6.7 g/dl (6.4-8.2)
[2022-02-10] MEDS: DEXAMETHASONE SOD PHOSPHATE 10 MG/1 ML VIAL IVPUSH SCH (10:47)
[2022-02-10] MEDS: REMDESIVIR 100 MG in SODIUM CHLORIDE 250 ML IVPB SCH (10:53)
[2022-02-10] MEDS: APIXABAN 5 MG TABLET PO SCH ×2 (10:53→21:27)
[2022-02-10] MEDS ORDERED: oxyCODONE HCL 5 MG TABLET PO ONE (21:12)
[2022-02-10] MEDS: MELATONIN 1 MG TABLET PO SCH (21:27)
[2022-02-11] MEDS: dilTIAZem HCL 30 MG TABLET PO SCH ×3 (01:03→12:55)
[2022-02-11] MEDS: APIXABAN 5 MG TABLET PO SCH ×2 (10:04→21:46)
[2022-02-11] MEDS: REMDESIVIR 100 MG in SODIUM CHLORIDE 250 ML IVPB SCH (10:04)
[2022-02-11] MEDS: DEXAMETHASONE SOD PHOSPHATE 10 MG/1 ML VIAL IVPUSH SCH (10:04)
[2022-02-11] MEDS: oxyCODONE HCL 5 MG TABLET PO PRN (17:30)
[2022-02-11] MEDS: guaiFENesin/CODEINE 5 ML UNIT-DOSE CUPS PO PRN (21:45)
[2022-02-11] MEDS: MELATONIN 1 MG TABLET PO SCH (21:45)
[2022-02-12 06:52] LABS: BASO % 1.1 % (0-2.0); HEMATOCRIT 36.5 % (35.4-49); HEMOGLOBIN 12.1 GM/dL (11.7-16.9); LYMPH % 8.5 % (8-40); MCH 30.6 pg (25.7-33.7); MCHC 33.3 g/dl (32.0-35.9); MEAN PLT VOLUME 7.9 fl (7.5-11.1); MONO % 10.2 % (3.8-10.2); NEUT % 80.2 % (42.8-82.8); PLATELET COUNT 262 10^3/uL (134-434); RBC 3.96 M/mm3 (4.00-5.60); RDW 16.7 % (11.9-15.9); WHITE BLOOD COUNT 5.7 K/mm3 (4.0-10.0)
[2022-02-12 07:05] LABS: ALBUMIN 2.9 g/dl (3.4-5.0); CALCIUM 8.4 mg/dL (8.5-10.1); MAGNESIUM 1.9 mg/dL (1.8-2.4)
[2022-02-12 07:08] LABS: CREATININE 0.7 mg/dL (0.55-1.3)
[2022-02-12 07:10] LABS: BILIRUBIN,TOTAL 0.3 mg/dL (0.2-1); TOT PROT 6.3 g/dl (6.4-8.2)
[2022-02-12] MEDS: DEXAMETHASONE SOD PHOSPHATE 10 MG/1 ML VIAL IVPUSH SCH (09:54)
[2022-02-12] MEDS: APIXABAN 5 MG TABLET PO SCH ×2 (09:55→22:10)
[2022-02-12] MEDS: REMDESIVIR 100 MG in SODIUM CHLORIDE 250 ML IVPB SCH (09:56)
[2022-02-12] MEDS: oxyCODONE HCL 5 MG TABLET PO PRN (16:05)
[2022-02-12] MEDS: guaiFENesin/CODEINE 5 ML UNIT-DOSE CUPS PO PRN ×2 (16:15→22:10)
[2022-02-12] MEDS: ALBUTEROL SO4 HFA INHALER IH PRN (16:17)
[2022-02-12] MEDS: MELATONIN 1 MG TABLET PO SCH (22:10)
[2022-02-13 06:00] VITALS: RESP 18
[2022-02-13 09:37] LABS: HEMOGLOBIN 12.4 GM/dL (11.7-16.9); MCH 30.7 pg (25.7-33.7); MCHC 33.4 g/dl (32.0-35.9); MEAN CELL VOLUME 91.9 fl (80-96); MEAN PLT VOLUME 8.2 fl (7.5-11.1); PLATELET COUNT 327 10^3/uL (134-434); RBC 4.03 M/mm3 (4.00-5.60); RDW 17.5 % (11.9-15.9); WHITE BLOOD COUNT 6.8 K/mm3 (4.0-10.0)
[2022-02-13] MEDS: APIXABAN 5 MG TABLET PO SCH (09:48)
[2022-02-13 09:54] LABS: SODIUM 141 mmol/L (136-145)
[2022-02-13 09:55] LABS: CHLORIDE 102 mmol/L (98-107)
[2022-02-13 10:00] LABS: ALBUMIN 2.9 g/dl (3.4-5.0); ANION GAP 6 MMOL/L (8-16); BLOOD UREA NITROGEN 24.6 mg/dL (7-18); CO2 32 mmol/L (21-32); GLUCOSE,RANDOM 185 mg/dL (74-106)
[2022-02-13] MEDS ORDERED: DEXAMETHASONE 4 MG TABLET (FP) PO SCH (10:00)
[2022-02-13 10:03] LABS: CREATININE 0.7 mg/dL (0.55-1.3); SGOT/AST 19 U/L (15-37); SGPT/ALT 28 U/L (13-61)
[2022-02-13 10:05] LABS: BILIRUBIN,TOTAL 0.6 mg/dL (0.2-1); TOT PROT 6.2 g/dl (6.4-8.2)
[2022-02-13 10:06] LABS: ALK PHOS 72 U/L (45-117)
[2022-02-13 10:56] LABS: ANISOCYTOSIS 2+; MACROCYTOSIS 1+; OVALOCYTE 2+; TOXIC GRANULATION 2+
[2022-02-13 14:41] VITALS: BP 142/77; PULSE 77; TEMP 98.2
== END 2022-02-13 17:30 | disposition home or self-care (01) | DRG 178 ==
LOC: JER 20:32 → JERBED 22:53 → JICU 02-08 02:02 → J4S 02-08 18:01
PROVIDERS: ADMIT Hospitalist; ATTEND Nurse Practitioner Acute Care
PROC: XW033E5 Introduction of Remdesivir Anti-infective into Peripheral Vein, Percutaneous Approach, New Technology Group 5 (ICD-10-PCS; principal; 2022-02-07)
DX: U07.1 COVID-19 (principal); C22.1 Intrahepatic bile duct carcinoma; I24.8 Other forms of acute ischemic heart disease; J44.1 Chronic obstructive pulmonary disease with (acute) exacerbation; R64 Cachexia; Z68.1 Body mass index [BMI] 19.9 or less, adult; I48.91 Unspecified atrial fibrillation; F17.210 Nicotine dependence, cigarettes, uncomplicated; R00.0 Tachycardia, unspecified
CPT/HCPCS: 0241U-QW; 36415; 71045-TC-FY; 80048; 80053; 80061; 80076; 82803; 83735; 83880; 84100; 84443; 84484; 85025; 85379; 86140; 87040; 87086; 93005; 93010; 93306-TC; 93970-TC; 94640; 94761; 99285-25; C9399; C9803-CS; J1100; U0003; U0005

== ENCOUNTER 2022-02-22 19:01 | Emergency (ER) | payer OTHER, MEDICARE ==
[2022-02-22 19:22] VITALS: BP 115/71; PULSE 72; RESP 18; TEMP 98.4; BMI 18.6
[2022-02-22 20:33] LABS: EPI CELLS 8 /uL (0-25.1); HYALINE CASTS 1 /uL (0-3.1); URINE APPEARANCE TURBID; URINE BACTERIA 295 /uL (0-1359); URINE BILIRUBIN NEGATIVE (NEGATIVE); URINE COLOR DK YELLOW; URINE GLUCOSE (UA) NEGATIVE (NEGATIVE); URINE KETONE TRACE (NEGATIVE); URINE LEUK ESTERASE 3+ (NEGATIVE); URINE NITRITE NEGATIVE (NEGATIVE); URINE PROTEIN 1+ (NEGATIVE); URINE RBC 44 /uL (0-23.9); URINE UROBILINOGEN 0.2 mg/dL (0.2-1.0); URINE WBC 642 /uL (0-25.8)
[2022-02-22] MEDS ORDERED: PHENAZOPYRIDINE HCL 100 MG TABLET (FP) PO ONE (20:39)
[2022-02-22] MEDS ORDERED: CEPHALEXIN MONOHYDRATE 500 MG CAPSULE (UD) PO ONE (20:39)
[2022-02-22] MEDS ORDERED: CEPHALEXIN MONOHYDRATE 500 MG CAPSULE (UD) ONE (20:41)
[2022-02-22] MEDS ORDERED: PHENAZOPYRIDINE HCL 100 MG TABLET (FP) ONE (20:42)
== END 2022-02-22 21:05 | disposition home or self-care (01) ==
LOC: JERFT 19:01
DX: N39.0 Urinary tract infection, site not specified (principal)
CPT/HCPCS: 81003; 87086; 99283-25

== ENCOUNTER 2023-03-17 14:05 | Inpatient (IN) | payer OTHER, MEDICARE ==
[2023-03-17] MEDS: ALBUTEROL SO4 2.5/IPRATROPIUM 0.5 INH SOL 3 ML VIAL.NEB. NEB SCH ×4 (15:15→16:08)
[2023-03-17] MEDS ORDERED: AZITHROMYCIN 500 MG TABLET PO ONE (15:31)
[2023-03-17] MEDS ORDERED: AZITHROMYCIN 500 MG TABLET ONE (15:52)
[2023-03-17] MEDS ORDERED: ALBUTEROL SO4 2.5/IPRATROPIUM 0.5 INH SOL 3 ML VIAL.NEB. NEB ONE (15:52)
[2023-03-17 16:13] LABS: BASO % 0.3 % (0-2.0); EOS % 0.6 % (0-4.5); HEMATOCRIT 42.2 % (35.4-49); HEMOGLOBIN 14.2 GM/dL (11.7-16.9); LYMPH % 6.6 % (8-40); MCH 33.3 pg (25.7-33.7); MCHC 33.7 g/dl (32.0-35.9); MEAN CELL VOLUME 98.7 fl (80-96); MEAN PLT VOLUME 9.3 fl (7.5-11.1); MONO % 4.5 % (3.8-10.2); PLATELET COUNT 200 10^3/uL (134-434); RBC 4.28 M/mm3 (4.00-5.60); RDW 15.8 % (11.9-15.9); WHITE BLOOD COUNT 7.2 K/mm3 (4.0-10.0)
[2023-03-17 16:23] LABS: POTASSIUM 4.2 mmol/L (3.5-5.1)
[2023-03-17 16:25] LABS: CALCIUM 8.1 mg/dL (8.5-10.1)
[2023-03-17 16:26] LABS: ALBUMIN 3.1 g/dl (3.4-5.0); BLOOD UREA NITROGEN 18.4 mg/dL (7-18)
[2023-03-17 16:29] LABS: CREATININE 0.9 mg/dL (0.55-1.3)
[2023-03-17 16:31] LABS: TOT PROT 6.4 g/dl (6.4-8.2)
[2023-03-17 16:34] LABS: N-TERMINAL BNP 16851.9 pg/ml (5-125)
[2023-03-17 16:35] LABS: BILIRUBIN,TOTAL 0.8 mg/dL (0.2-1)
[2023-03-17] MEDS ORDERED: ASPIRIN 81 MG CHEWABLE TABLETS PO ONE (17:05)
[2023-03-17] MEDS ORDERED: ASPIRIN 81 MG CHEWABLE TABLETS ONE (17:16)
[2023-03-17] MEDS ORDERED: ALBUTEROL SO4 HFA INHALER IH PRN (18:43)
[2023-03-17] MEDS ORDERED: ALBUTEROL SO4 2.5/IPRATROPIUM 0.5 INH SOL 3 ML VIAL.NEB. NEB SCH (20:00)
[2023-03-17] MEDS ORDERED: LEVALBUTEROL HCL 0.31 MG/3 ML VIAL.NEB IH ONE (20:27)
[2023-03-17] MEDS: LEVALBUTEROL HCL 0.31 MG/3 ML VIAL.NEB IH SCH (21:16)
[2023-03-17] MEDS ORDERED: HEPARIN NA (PORCINE) 5,000 UNITS/ML 1ML VIAL SQ SCH (22:00)
[2023-03-17] MEDS ORDERED: APIXABAN 5 MG TABLET ONE (22:24)
[2023-03-17] MEDS ORDERED: METOPROLOL TARTRATE 25 MG TABLET (FP) ONE (22:25)
[2023-03-17] MEDS: METOPROLOL TARTRATE 25 MG TABLET (FP) PO SCH (22:34)
[2023-03-17] MEDS: APIXABAN 5 MG TABLET PO SCH (22:34)
[2023-03-17] MEDS: BUDESONIDE/FORMETEROL FUMARATE 80/4.5 mcg INHALER IH SCH (22:44)
[2023-03-18 06:23] LABS: BASO % 0.2 % (0-2.0); HEMATOCRIT 42.6 % (35.4-49); HEMOGLOBIN 13.8 GM/dL (11.7-16.9); LYMPH % 8.1 % (8-40); MCH 32.7 pg (25.7-33.7); MCHC 32.5 g/dl (32.0-35.9); MEAN CELL VOLUME 100.7 fl (80-96); MEAN PLT VOLUME 9.4 fl (7.5-11.1); NEUT % 87.7 % (42.8-82.8); PLATELET COUNT 187 10^3/uL (134-434); RBC 4.23 M/mm3 (4.00-5.60); RDW 15.4 % (11.9-15.9); WHITE BLOOD COUNT 6.5 K/mm3 (4.0-10.0)
[2023-03-18 07:09] LABS: POTASSIUM 5.1 mmol/L (3.5-5.1)
[2023-03-18 07:11] LABS: CALCIUM 8.3 mg/dL (8.5-10.1)
[2023-03-18 07:12] LABS: ALBUMIN 3.1 g/dl (3.4-5.0); BLOOD UREA NITROGEN 28.1 mg/dL (7-18); MAGNESIUM 2.1 mg/dL (1.8-2.4)
[2023-03-18 07:15] LABS: CREATININE 1.1 mg/dL (0.55-1.3); PHOSPHOROUS 3.5 mg/dL (2.5-4.9)
[2023-03-18 07:16] LABS: BILIRUBIN,TOTAL 0.9 mg/dL (0.2-1); TOT PROT 6.7 g/dl (6.4-8.2)
[2023-03-18] MEDS: LEVALBUTEROL HCL 0.31 MG/3 ML VIAL.NEB IH SCH ×3 (08:40→20:44)
[2023-03-18] MEDS ORDERED: LEVALBUTEROL HCL 0.31 MG/3 ML VIAL.NEB IH ONE (08:40)
[2023-03-18] MEDS ORDERED: FUROSEMIDE 40 MG/4 ML INJECTABLE VIAL ONE (09:35)
[2023-03-18] MEDS: BUDESONIDE/FORMETEROL FUMARATE 80/4.5 mcg INHALER IH SCH (09:48)
[2023-03-18] MEDS: APIXABAN 5 MG TABLET PO SCH ×2 (09:48→21:28)
[2023-03-18] MEDS: FUROSEMIDE 40 MG/4 ML INJECTABLE VIAL IVPUSH SCH (09:48)
[2023-03-18] MEDS: SACUBITRIL/VALSARTAN 24 MG-26 MG TABLET PO SCH ×2 (09:48→21:28)
[2023-03-18] MEDS: METOPROLOL TARTRATE 25 MG TABLET (FP) PO SCH (09:48)
[2023-03-18] MEDS ORDERED: METOPROLOL TARTRATE 5 MG/5 ML VIAL ONE ×2 (09:54→10:15)
[2023-03-18] MEDS ORDERED: methylPREDNISolone NA SUCC 40 MG/1 ML VIAL IVPUSH SCH (10:00)
[2023-03-18] MEDS ORDERED: dilTIAZem HCL 125 MG/25 ML - 25 ML VIAL ONE (10:04)
[2023-03-18] MEDS ORDERED: IPRATROPIUM BR 0.02% 0.5 MG/2.5 ML VIAL.NEB. NEB ONE (10:09)
[2023-03-18] MEDS: METOPROLOL TARTRATE 5 MG/5 ML VIAL IVPUSH ONE ×2 (10:15→14:03)
[2023-03-18] MEDS: IPRATROPIUM BR 0.02% 0.5 MG/2.5 ML VIAL.NEB. NEB PRN ×2 (10:23→10:37)
[2023-03-18] MEDS ORDERED: dilTIAZem HCL 30 MG TABLET PO ONE (10:28)
[2023-03-18] MEDS ORDERED: METOPROLOL TARTRATE 5 MG/5 ML VIAL IVPUSH ONE (10:30)
[2023-03-18] MEDS ORDERED: dilTIAZem HCL 30 MG TABLET ONE (10:36)
[2023-03-18] MEDS ORDERED: dilTIAZem HCL 30 MG TABLET PO SCH (14:00)
[2023-03-18] MEDS ORDERED: METOPROLOL TARTRATE 50 MG TABLET (FP) PO SCH ×2 (14:00→22:00)
[2023-03-18] MEDS ORDERED: METOPROLOL TARTRATE 50 MG TABLET (FP) ONE (14:05)
[2023-03-18] MEDS: methylPREDNISolone NA SUCC 40 MG/1 ML VIAL IVPUSH SCH (18:52)
[2023-03-18] MEDS: METOPROLOL TARTRATE 5 MG/5 ML VIAL IVPUSH PRN (18:59)
[2023-03-18] MEDS ORDERED: METOPROLOL TARTRATE 25 MG TABLET (FP) PO PRN (20:00)
[2023-03-18] MEDS ORDERED: IBUPROFEN 400 MG TABLET (FP) PO ONE (20:30)
[2023-03-18] MEDS: IPRATROPIUM BR 0.02% 0.5 MG/2.5 ML VIAL.NEB. NEB SCH (20:44)
[2023-03-18] MEDS: TRIAMCINOLONE ACET 0.1% OINT 15 GM TUBE TP SCH (21:31)
[2023-03-18] MEDS: LEVALBUTEROL HCL 0.31 MG/3 ML VIAL.NEB IH PRN (23:28)
[2023-03-18] MEDS ORDERED: BENZOCAINE/MENTH/CETYLPYRD CL 1 EACH LOZENGE MM PRN (23:36)
[2023-03-19] MEDS: BUDESONIDE/FORMETEROL FUMARATE 80/4.5 mcg INHALER IH SCH ×2 (00:58→09:13)
[2023-03-19] MEDS: METOPROLOL TARTRATE 5 MG/5 ML VIAL IVPUSH PRN ×3 (01:00→17:49)
[2023-03-19] MEDS: methylPREDNISolone NA SUCC 40 MG/1 ML VIAL IVPUSH SCH ×3 (01:10→17:48)
[2023-03-19] MEDS: IPRATROPIUM BR 0.02% 0.5 MG/2.5 ML VIAL.NEB. NEB SCH ×3 (07:15→20:21)
[2023-03-19] MEDS: LEVALBUTEROL HCL 0.31 MG/3 ML VIAL.NEB IH SCH ×3 (07:15→20:22)
[2023-03-19 08:20] LABS: HEMATOCRIT 43.6 % (35.4-49); HEMOGLOBIN 14.4 GM/dL (11.7-16.9); MEAN CELL VOLUME 100.1 fl (80-96); PLATELET COUNT 230 10^3/uL (134-434); RBC 4.36 M/mm3 (4.00-5.60); RDW 15.5 % (11.9-15.9); WHITE BLOOD COUNT 10.3 K/mm3 (4.0-10.0)
[2023-03-19 08:33] LABS: CHLORIDE 103 mmol/L (98-107); POTASSIUM 4.8 mmol/L (3.5-5.1); SODIUM 137 mmol/L (136-145)
[2023-03-19 08:41] LABS: ANION GAP 12 MMOL/L (8-16); CALCIUM 8.7 mg/dL (8.5-10.1); CO2 21 mmol/L (21-32); GLUCOSE,RANDOM 158 mg/dL (74-106)
[2023-03-19 08:45] LABS: CREATININE 1.6 mg/dL (0.55-1.3)
[2023-03-19 08:53] LABS: BLOOD UREA NITROGEN 55.5 mg/dL (7-18); N-TERMINAL BNP > 35000.0 pg/ml (5-125)
[2023-03-19] MEDS: SACUBITRIL/VALSARTAN 24 MG-26 MG TABLET PO SCH (09:15)
[2023-03-19] MEDS: FUROSEMIDE 40 MG/4 ML INJECTABLE VIAL IVPUSH SCH (09:15)
[2023-03-19] MEDS: APIXABAN 5 MG TABLET PO SCH ×2 (09:16→21:06)
[2023-03-19] MEDS: TRIAMCINOLONE ACET 0.1% OINT 15 GM TUBE TP SCH (12:22)
[2023-03-19] MEDS ORDERED: ACETAMINOPHEN 1000 MG/100 ML BAG IVPB PRN (21:49)
[2023-03-19 23:51] VITALS: BMI 23.3
[2023-03-20] MEDS: LIDOCAINE 5% TOPICAL PATCH TP SCH ×2 (03:41→09:38)
[2023-03-20] MEDS: LIDOCAINE PATCH REMOVAL MC SCH ×2 (03:42→21:10)
[2023-03-20] MEDS: methylPREDNISolone NA SUCC 40 MG/1 ML VIAL IVPUSH SCH ×3 (03:42→17:58)
[2023-03-20] MEDS: BUDESONIDE/FORMETEROL FUMARATE 80/4.5 mcg INHALER IH SCH ×3 (03:42→21:08)
[2023-03-20] MEDS ORDERED: METOPROLOL TARTRATE 5 MG/5 ML VIAL IVPUSH ONE ×2 (07:25→07:45)
[2023-03-20 07:28] LABS: HEMATOCRIT 45.1 % (35.4-49); HEMOGLOBIN 14.4 GM/dL (11.7-16.9); MCH 32.4 pg (25.7-33.7); MCHC 31.9 g/dl (32.0-35.9); MEAN CELL VOLUME 101.5 fl (80-96); MEAN PLT VOLUME 9.7 fl (7.5-11.1); PLATELET COUNT 224 10^3/uL (134-434); POTASSIUM 3.8 mmol/L (3.5-5.1); RBC 4.44 M/mm3 (4.00-5.60); RDW 15.5 % (11.9-15.9); WHITE BLOOD COUNT 9.6 K/mm3 (4.0-10.0)
[2023-03-20] MEDS ORDERED: METOPROLOL TARTRATE 50 MG TABLET (FP) PO SCH (07:30)
[2023-03-20] MEDS ORDERED: METOPROLOL TARTRATE 5 MG/5 ML VIAL IVPUSH PRN (07:30)
[2023-03-20 07:32] LABS: ALBUMIN 3.2 g/dl (3.4-5.0); BLOOD UREA NITROGEN 60.5 mg/dL (7-18); CALCIUM 8.6 mg/dL (8.5-10.1); MAGNESIUM 2.2 mg/dL (1.8-2.4)
[2023-03-20 07:34] LABS: CREATININE 1.6 mg/dL (0.55-1.3)
[2023-03-20 07:35] LABS: PHOSPHOROUS 4.8 mg/dL (2.5-4.9)
[2023-03-20 07:36] LABS: BILIRUBIN,TOTAL 0.7 mg/dL (0.2-1); TOT PROT 6.6 g/dl (6.4-8.2)
[2023-03-20] MEDS: IPRATROPIUM BR 0.02% 0.5 MG/2.5 ML VIAL.NEB. NEB SCH ×3 (07:36→20:05)
[2023-03-20] MEDS: LEVALBUTEROL HCL 0.31 MG/3 ML VIAL.NEB IH SCH ×3 (07:37→20:05)
[2023-03-20] MEDS ORDERED: AMIODARONE HCL INJECTION 150 MG in DEXTROSE 5%-WATER - 100 ML IVPB ONE (08:00)
[2023-03-20] MEDS ORDERED: AMIODARONE IN DEXTROSE,ISO-OSM 150 MG/100 ML BAG IVPB ONE (08:00)
[2023-03-20] MEDS ORDERED: AMIODARONE IN DEXTROSE,ISO-OSM 360 MG/200 ML BAG IV SCH ×2 (08:15→14:15)
[2023-03-20 09:12] LABS: ANISOCYTOSIS 1+; MACROCYTOSIS 1+
[2023-03-20] MEDS: APIXABAN 5 MG TABLET PO SCH ×2 (09:27→21:08)
[2023-03-20] MEDS: TRIAMCINOLONE ACET 0.1% OINT 15 GM TUBE TP SCH (09:48)
[2023-03-20] MEDS ORDERED: DIGOXIN 0.5 MG/2 ML AMPUL IVPUSH ONE ×2 (13:00→19:00)
[2023-03-20] MEDS ORDERED: ACETAMINOPHEN 1000 MG/100 ML BAG IVPB ONE (23:19)
[2023-03-21] MEDS: methylPREDNISolone NA SUCC 40 MG/1 ML VIAL IVPUSH SCH ×3 (01:11→21:20)
[2023-03-21] MEDS: LEVALBUTEROL HCL 0.31 MG/3 ML VIAL.NEB IH SCH ×3 (07:15→19:38)
[2023-03-21] MEDS: IPRATROPIUM BR 0.02% 0.5 MG/2.5 ML VIAL.NEB. NEB SCH ×3 (07:15→19:38)
[2023-03-21] MEDS: APIXABAN 5 MG TABLET PO SCH ×2 (09:48→21:20)
[2023-03-21] MEDS: BUDESONIDE/FORMETEROL FUMARATE 80/4.5 mcg INHALER IH SCH ×2 (09:48→21:21)
[2023-03-21] MEDS: LIDOCAINE 5% TOPICAL PATCH TP SCH (09:59)
[2023-03-21 10:07] LABS: N-TERMINAL BNP 23446.2 pg/ml (5-125)
[2023-03-21] MEDS: TRIAMCINOLONE ACET 0.1% OINT 15 GM TUBE TP SCH (10:24)
[2023-03-21 16:34] LABS: EPI CELLS 7 /uL (0-25.1); HYALINE CASTS 1 /uL (0-3.1); URINE APPEARANCE CLEAR; URINE BACTERIA 17 /uL (0-1359); URINE BILIRUBIN NEGATIVE (NEGATIVE); URINE COLOR YELLOW; URINE GLUCOSE (UA) NEGATIVE (NEGATIVE); URINE KETONE NEGATIVE (NEGATIVE); URINE LEUK ESTERASE NEGATIVE (NEGATIVE); URINE NITRITE NEGATIVE (NEGATIVE); URINE PROTEIN 2+ (NEGATIVE); URINE RBC 6 /uL (0-23.9); URINE UROBILINOGEN 0.2 mg/dL (0.2-1.0); URINE WBC 3 /uL (0-25.8)
[2023-03-21] MEDS ORDERED: ACETAMINOPHEN 1000 MG/100 ML BAG IVPB ONE (19:13)
[2023-03-21] MEDS: LIDOCAINE PATCH REMOVAL MC SCH (21:23)
[2023-03-22 09:10] LABS: HEMATOCRIT 41.5 % (35.4-49); HEMOGLOBIN 14.1 GM/dL (11.7-16.9); MCH 33.4 pg (25.7-33.7); MCHC 33.9 g/dl (32.0-35.9); MEAN CELL VOLUME 98.4 fl (80-96); MEAN PLT VOLUME 10.2 fl (7.5-11.1); PLATELET COUNT 187 10^3/uL (134-434); RBC 4.22 M/mm3 (4.00-5.60); RDW 15.8 % (11.9-15.9); WHITE BLOOD COUNT 7.3 K/mm3 (4.0-10.0)
[2023-03-22] MEDS: IPRATROPIUM BR 0.02% 0.5 MG/2.5 ML VIAL.NEB. NEB SCH ×3 (09:16→20:37)
[2023-03-22] MEDS: LEVALBUTEROL HCL 0.31 MG/3 ML VIAL.NEB IH PRN (09:16)
[2023-03-22] MEDS: LEVALBUTEROL HCL 0.31 MG/3 ML VIAL.NEB IH SCH (09:18)
[2023-03-22 09:21] LABS: POTASSIUM 4.4 mmol/L (3.5-5.1)
[2023-03-22 09:37] LABS: CALCIUM 8.4 mg/dL (8.5-10.1)
[2023-03-22 09:39] LABS: ALBUMIN 2.9 g/dl (3.4-5.0); BLOOD UREA NITROGEN 49.9 mg/dL (7-18); MAGNESIUM 2.4 mg/dL (1.8-2.4)
[2023-03-22 09:42] LABS: CREATININE 1.2 mg/dL (0.55-1.3); PHOSPHOROUS 3.6 mg/dL (2.5-4.9)
[2023-03-22 09:44] LABS: BILIRUBIN,TOTAL 0.6 mg/dL (0.2-1)
[2023-03-22] MEDS: LIDOCAINE 5% TOPICAL PATCH TP SCH (09:47)
[2023-03-22] MEDS: APIXABAN 5 MG TABLET PO SCH ×2 (09:47→21:39)
[2023-03-22] MEDS: BUDESONIDE/FORMETEROL FUMARATE 80/4.5 mcg INHALER IH SCH ×2 (09:48→21:38)
[2023-03-22] MEDS: methylPREDNISolone NA SUCC 40 MG/1 ML VIAL IVPUSH SCH ×2 (09:48→21:39)
[2023-03-22] MEDS: TRIAMCINOLONE ACET 0.1% OINT 15 GM TUBE TP SCH (09:48)
[2023-03-22] MEDS: SACUBITRIL/VALSARTAN 24 MG-26 MG TABLET PO SCH ×2 (14:53→21:39)
[2023-03-22] MEDS: LIDOCAINE PATCH REMOVAL MC SCH (22:08)
[2023-03-23] MEDS: LEVALBUTEROL HCL 0.31 MG/3 ML VIAL.NEB IH PRN (03:37)
[2023-03-23 07:54] LABS: HEMATOCRIT 46.1 % (35.4-49); HEMOGLOBIN 14.7 GM/dL (11.7-16.9); MCH 32.6 pg (25.7-33.7); MCHC 31.8 g/dl (32.0-35.9); MEAN CELL VOLUME 102.4 fl (80-96); MEAN PLT VOLUME 9.9 fl (7.5-11.1); PLATELET COUNT 183 10^3/uL (134-434); RDW 15.7 % (11.9-15.9); WHITE BLOOD COUNT 8.8 K/mm3 (4.0-10.0)
[2023-03-23 08:11] LABS: POTASSIUM 4.6 mmol/L (3.5-5.1)
[2023-03-23 08:14] LABS: CALCIUM 8.4 mg/dL (8.5-10.1)
[2023-03-23 08:18] LABS: BLOOD UREA NITROGEN 46.9 mg/dL (7-18); CREATININE 1.1 mg/dL (0.55-1.3)
[2023-03-23 08:19] LABS: BILIRUBIN,TOTAL 0.8 mg/dL (0.2-1); TOT PROT 6.1 g/dl (6.4-8.2)
[2023-03-23] MEDS: IPRATROPIUM BR 0.02% 0.5 MG/2.5 ML VIAL.NEB. NEB SCH ×3 (09:40→20:05)
[2023-03-23] MEDS: DIGOXIN 0.125 MG TABLET PO SCH (10:13)
[2023-03-23] MEDS: APIXABAN 5 MG TABLET PO SCH ×2 (10:13→21:41)
[2023-03-23] MEDS: SACUBITRIL/VALSARTAN 24 MG-26 MG TABLET PO SCH ×2 (10:13→21:41)
[2023-03-23] MEDS: methylPREDNISolone NA SUCC 40 MG/1 ML VIAL IVPUSH SCH (10:14)
[2023-03-23] MEDS: LIDOCAINE 5% TOPICAL PATCH TP SCH (10:14)
[2023-03-23] MEDS: TRIAMCINOLONE ACET 0.1% OINT 15 GM TUBE TP SCH (10:15)
[2023-03-23] MEDS: BUDESONIDE/FORMETEROL FUMARATE 80/4.5 mcg INHALER IH SCH ×2 (10:15→21:41)
[2023-03-23] MEDS: LIDOCAINE PATCH REMOVAL MC SCH (21:46)
[2023-03-24] MEDS: IPRATROPIUM BR 0.02% 0.5 MG/2.5 ML VIAL.NEB. NEB SCH ×3 (07:45→20:05)
[2023-03-24 09:28] LABS: HEMATOCRIT 42.1 % (35.4-49); HEMOGLOBIN 14.2 GM/dL (11.7-16.9); MCH 33.4 pg (25.7-33.7); MCHC 33.8 g/dl (32.0-35.9); MEAN CELL VOLUME 98.9 fl (80-96); MEAN PLT VOLUME 9.4 fl (7.5-11.1); PLATELET COUNT 173 10^3/uL (134-434); RBC 4.26 M/mm3 (4.00-5.60); RDW 15.7 % (11.9-15.9); WHITE BLOOD COUNT 9.3 K/mm3 (4.0-10.0)
[2023-03-24] MEDS ORDERED: methylPREDNISolone NA SUCC 40 MG/1 ML VIAL IVPUSH SCH (10:00)
[2023-03-24 10:01] LABS: POTASSIUM 4.1 mmol/L (3.5-5.1)
[2023-03-24 10:12] LABS: ALBUMIN 2.9 g/dl (3.4-5.0); CALCIUM 9.1 mg/dL (8.5-10.1)
[2023-03-24 10:13] LABS: BLOOD UREA NITROGEN 41.5 mg/dL (7-18); MAGNESIUM 2.2 mg/dL (1.8-2.4)
[2023-03-24 10:16] LABS: PHOSPHOROUS 2.6 mg/dL (2.5-4.9)
[2023-03-24 10:17] LABS: BILIRUBIN,TOTAL 1.3 mg/dL (0.2-1); TOT PROT 5.8 g/dl (6.4-8.2)
[2023-03-24] MEDS: SACUBITRIL/VALSARTAN 24 MG-26 MG TABLET PO SCH (10:42)
[2023-03-24] MEDS: APIXABAN 5 MG TABLET PO SCH (10:42)
[2023-03-24] MEDS: DIGOXIN 0.125 MG TABLET PO SCH (10:43)
[2023-03-24] MEDS: TRIAMCINOLONE ACET 0.1% OINT 15 GM TUBE TP SCH (10:58)
[2023-03-24] MEDS: BUDESONIDE/FORMETEROL FUMARATE 80/4.5 mcg INHALER IH SCH (10:58)
[2023-03-24] MEDS ORDERED: LIDOCAINE 4% PATCH TP SCH ×2 (11:23→13:30)
[2023-03-24] MEDS ORDERED: FUROSEMIDE 40 MG/4 ML INJECTABLE VIAL IVPUSH SCH (12:45)
[2023-03-24] MEDS: LIDOCAINE 5% TOPICAL PATCH TP SCH (13:11)
[2023-03-24] MEDS ORDERED: ENOXAPARIN NA (PORCINE) 60 MG/0.6 ML DISP.SYRIN SQ ONE (22:00)
[2023-03-24] MEDS ORDERED: LIDOCAINE PATCH REMOVAL MC SCH (22:00)
[2023-03-24] MEDS ORDERED: ENOXAPARIN NA (PORCINE) 60 MG/0.6 ML DISP.SYRIN SQ SCH (22:00)
[2023-03-24 22:13] VITALS: BP 135/91; PULSE 136; RESP 20; TEMP 98
== END 2023-03-24 21:30 | disposition short-term general hospital (02) | DRG 308 ==
LOC: JER 14:05 → JERBED 18:04 → J4W 03-18 17:01 → OBSVTOIN 03-21 09:27 → J4S 03-24 00:59
PROVIDERS: ADMIT Internal Medicine; ATTEND Internal Medicine
DX: I48.91 Unspecified atrial fibrillation (principal); I50.43 Acute on chronic combined systolic (congestive) and diastolic (congestive) heart failure; J44.1 Chronic obstructive pulmonary disease with (acute) exacerbation; N17.9 Acute kidney failure, unspecified; I11.0 Hypertensive heart disease with heart failure; E78.5 Hyperlipidemia, unspecified; F41.9 Anxiety disorder, unspecified; R94.5 Abnormal results of liver function studies; L40.8 Other psoriasis; R77.8 Other specified abnormalities of plasma proteins; B19.20 Unspecified viral hepatitis C without hepatic coma; Z85.6 Personal history of leukemia; Z85.05 Personal history of malignant neoplasm of liver
CPT/HCPCS: 0241U-QW; 36415; 71045-TC-FY; 80048; 80053; 80162; 81003; 82550; 82553; 83735; 83880; 84100; 84439; 84443; 84484; 85025; 85027; 87635; 93005; 93010; 94640; 99285-25; G0378